=== PATIENT | male | born 1985 | race Caucasian/White ===

== ENCOUNTER 2024-09-14 23:23 | Emergency (ER) | payer OTHER, SELFPAY ==
[2024-09-14 23:24] VITALS: BP 149/87
--- NOTE | 2024-09-14 23:30 | ED.GENMED ---
History of Present Illness
General
Chief Complaint: Musculo-Skeletal Complaint
Source: patient
Exam Limitations: none
Time Seen by Provider: 09/14/24 23:26
History of Present Illness
History of Present Illness:
See MDM
Past History
Past History
ED Past Medical History: None
ED Past Surgical History: Orthopedic
Social History
Tobacco: Non-smoker
Personal:
Living: with family
Employment: Employed
Phy Exam
Physical Exam
Physical Exam:
See MDM
Course
Orders/Labs/Results
Orders:
Orders
09/14/24 23:28
Hip, Right 2-3 Views [CR Hip - RT w/wo Pel 2-3 Vw*] Urgent
Comment:
Reason For Exam: R hip pain
Include a pelvis x-ray?: Yes
09/14/24 23:31
HYDROmorphone [Dilaudid] 0.5 mg IV NOW STA
09/15/24 00:24
Propofol [Diprivan] 20 ml .ROUTE .STK-MED
09/15/24 00:34
CR Hip - RT without Pel 1 Vw Urgent
Reason For Exam: post reduction
Vital Signs
Initial and Last Documented VS:
Initial Vital Signs
Temp Pulse Resp BP Pulse Ox
98.5 F 106 20 149/87 98
09/14/24 23:24 09/14/24 23:24 09/14/24 23:24 09/14/24 23:24 09/14/24 23:24
Last Documented Vital Signs
Temp Pulse Resp BP Pulse Ox
98.4 F 83 23 153/98 97
09/15/24 01:15 09/15/24 01:15 09/15/24 01:15 09/15/24 01:15 09/15/24 01:15
Procedures
Moderate Sedation
ASA Risk Score: Class I
Chart and allergies reviewed: Yes
Consent for anesthesia obtained: Yes
Time out completed (validating right patient & procedure): Yes
Moderate Sedation Start Time(when first medication is given): 12:30
History of difficult intubation: No
Airway free of obstruction: Yes
Patient has a gag reflex: Yes
Patient is able to open mouth: Yes
Patient has no dentures: Yes
Patient has no loose teeth: Yes
Medication administered by Provider during Moderate Sedation: IV Propofol (mg)
Total dose administered: 200
Time drug administered: 12:30
Moderate Sedation Procedure End Time: 12:45
Comment: Time out 1225
Joint/Fracture Reduction
Right Anterior Lateral Proximal Hip:
Indication for procedure:: Right hip dislocation
Procedure completed by: Ronaldo Poon DO
Consent form signed: Yes
Joint reduced: with anesthesia sedation
Injury was: closed
Further treatement: needs re-check only
Post reduction exam: stable
Capillary Refill: normal
Normal distal neurovascular exam?: Yes
Peripheral Pulses: dorsalis pedis (right): 2+
MDM/Problems Addressed
Differential Diagnosis Includes:
HPI and MDM Narrative:
38-year-old male presenting with right hip pain. Patient was playing ice hockey and he felt a pop. Patient is concerned about possible hip dislocation. He states he had a hip replacement a few years ago. He denies numbness or tingling
On exam, he does have a shortened and inverted right leg. The distal extremity is otherwise neurovascularly intact. Will obtain hip x-ray to rule out dislocation versus fracture
Physical exam
General: Well appearing and non-toxic
HEENT: protecting airway
Neck: appears supple
CV: No evidence of cyanosis
Resp: No accessory muscle use
Abd: Non-distended
Extremities: Right leg shortened and internally rotated
Neuro: alert
Psych: Normal affect
Skin: Intact
Problems Addressed including Acute and Chronic Conditions affecting care:
1. Right hip injury
Acuity: acute
Prognosis: stable
Details: Will obtain x-ray to rule out fracture versus dislocation
Updates
Patient tolerated propofol well and the hip was reduced without complication
Differential Diagnosis (but not limited to): Hip fracture, hip dislocation
Testing considered: Femur x-ray
Drug therapy (if applicable): OTC meds, please see d/c instruction regarding Rx drugs
Amount and/or Complexity of Data Reviewed
Clinical info obtained from: Patient
External data reviewed: N/A
Labs I independently reviewed (but not limited to): N/A
Radiology: X-ray independently reviewed: Right anterior hip dislocation
Pulse Ox: not hypoxic
EKG independently reviewed: N/A
Master Printer: N/A
Critical Care: N/A
Risk of Complication:
Social Determinants of health: Good social support
Discussed with other providers: N/A
Escalation of Care includes Admit/Obs: After being observed in the Emergency Department, pt stable for discharge.
Occasional wrong word or 'sound a like' substitutions may have occurred due to the inherent limitations of voice recognition software. Read the chart carefully and recognize, using context, where substitutions have occurred.
*Critical Care Note
Total Time (30-74mins, 75-104mins- exclusive of procedures): Not Applicable
ED Attending Note
-
Portions of this chart may have been created with voice recognition software.� Occasional wrong word or��sound alike� substitutions may have occurred due to the inherent limitations of voice recognition software.
Discharge Plan
Departure
Patient Disposition: Home (Routine Discharge)
Date of Disposition: 09/15/24
Time of Disposition: 00:39
Patient with high blood pressure during this ER visit?: No
Discharge Problem:
Anterior dislocation of right hip
Instructions: Hip Dislocation, MODERATE SEDATION ADULT
Activity Restrictions/Additional Instructions:
Please return for any worsening symptoms.
You may return at any time if you have further concerns.
Please follow up with your orthopedic doctor at the first available appointment, preferably this week. Please continue to wear the knee immobilizer until told otherwise by the orthopedist.
Thank you for choosing [facility].
Interventions
Interventions:
*Risk Screen - Suicide Last Done: 09/14/24 23:33
*General Assessment Last Done: 09/14/24 23:33
*Neglect/Abuse Screening Last Done: 09/14/24 23:33
*ED- Fall Risk Assessment Last Done: 09/14/24 23:33
*ED COVID-19 Vaccine History Last Done: 09/14/24 23:33
*Nursing Disposition Last Done: 09/15/24 01:40
ED-Musculoskeletal Assessment Last Done: 09/14/24 23:35
Discharge Date and Time
Discharge Date/Time: 09/15/24 01:40
Print Language: PORTUGUESE
[2024-09-14] MEDS: DILAUDID 0.5 MG IV (23:32)
[2024-09-15] VITALS (12 sets, daily range): BP systolic 134–153; BP diastolic 73–98
== END 2024-09-15 01:40 | disposition home or self-care (01) ==
LOC: EMR 23:23
PROVIDERS: EMERGENCY PHYSICIAN Student in an Organized Health Care Education/Training Program; FAMILY PHYSICIAN Family Medicine
DX: T84.020A Dislocation of internal right hip prosthesis, initial encounter (principal); X58.XXXA Exposure to other specified factors, initial encounter; Y93.22 Activity, ice hockey; Y79.2 Prosthetic and other implants, materials and accessory orthopedic devices associated with adverse incidents; Z96.641 Presence of right artificial hip joint
CPT/HCPCS: 99285; 27265; 99152; 73501; 73502